=== PATIENT | male | born 1935 | race Caucasian/White ===

== ENCOUNTER → 2017-07-19 | Outpatient (CLI) | payer MEDICARE, OTHER ==
[~2017-07-19] MED LIST: ALEVE220 MG PO; AMLODIPINE BESYL5 MG PO; BENADRYL50 MG PO; COZAAR50 MG PO; ENALAPRIL MALEA20 MG PO; FINASTERIDE5 MG PO; HYDROCHLOROTH12.5 M3 PO; LIPITOR40 MG PO; LUPRON DEPOT45 MG IM; PRILOSEC20 MG PO; ST. JOSEPH ASPI81 MG PO; TAMSULOSIN HCL0.4 MG PO; TOPROL XL100 MG PO; TYLENOL EXTRA500 MG PO; VITAMIN D31000 UNI2 PO; ZYLOPRIM100 MG PO
== END | disposition home or self-care (01) ==
LOC: CDC 08:34
DX: Z01.810 Encounter for preprocedural cardiovascular examination (principal); I44.4 Left anterior fascicular block
CPT/HCPCS: 93000

== ENCOUNTER 2017-09-07 08:55 | Day surgery (SDC) | payer OTHER ==
[~2017-09-07] VITALS: Ht 177.8 cm; Wt 88.4 kg
[2017-09-07 09:54] VITALS: BP 196/93
[2017-09-07 10:50] LABS: ANION GAP 12 MEQ/L (2-14); CHLORIDE 99 MEQ/L (99-109); GFR ESTIMATE (CALCULATED) 31 mL/min/ (58.99-99999); GLUCOSE 101 mg/dL (70-99); POTASSIUM 3.4 MEQ/L (3.7-5.4); SAMPLE HEMOLYSIS CHECK 0; SAMPLE ICTERIC CHECK 0; SAMPLE LIPEMIA CHECK 0; SODIUM 135 MEQ/L (136-147); UREA NITROGEN (BUN) 23 mg/dL (9-23)
[2017-09-07 13:25] VITALS: BP 176/85
[2017-09-07 14:06] VITALS: BP 183/84
== END 2017-09-07 14:25 | disposition home or self-care (01) ==
LOC: SDC
PROVIDERS: Urology
DX: N13.1 Hydronephrosis with ureteral stricture, not elsewhere classified (principal); C61 Malignant neoplasm of prostate; I12.9 Hypertensive chronic kidney disease with stage 1 through stage 4 chronic kidney disease, or unspecified chronic kidney disease; N18.9 Chronic kidney disease, unspecified
CPT/HCPCS: 74420; 80048; C1726; C1769; C2625; J0330; J0690; J1580; J2405; J3010; J7050

== ENCOUNTER 2017-10-28 14:03 | Emergency (ER) | payer OTHER ==
[~2017-10-28] VITALS: Ht 177.8 cm; Wt 85.5 kg
[2017-10-28 15:26] LABS: HEMATOCRIT 36.5 % (38.0-50.0); HEMOGLOBIN 12.4 G/DL (12.5-16.6); MCH 34.7 PG (29.0-34.0); MCV 102.2 FL (86-99); PLATELET COUNT 147 K/uL (156-360); RBC DIS.WIDTH-CV 12.5 % (11.8-14.6); RBC DIS.WIDTH-SD 47.8 % (39-53); RED BLOOD COUNT 3.57 M/uL (4.00-5.50); WHITE BLOOD COUNT 3.2 K/uL (4.1-10.2)
[2017-10-28 15:33] LABS: CHLORIDE 107 mEq/L (99-109); POTASSIUM 3.9 mEq/L (3.7-5.4); SODIUM 139 mEq/L (136-147)
[2017-10-28 15:34] LABS: GLUCOSE 102 mg/dL (70-99)
[2017-10-28 15:38] LABS: CREATININE 2.1 mg/dL (0.6-1.3); GFR ESTIMATE (CALCULATED) 32 mL/min/ (58.99-99999)
[2017-10-28 15:39] LABS: UREA NITROGEN (BUN) 17 mg/dL (9-23)
[2017-10-28] MEDS ORDERED: VENTOLIN HFA18 GM IH (15:44)
[2017-10-28] MEDS ORDERED: ROBITUSSIN AC,T10 ML PO (15:57)
[2017-10-28 16:18] VITALS: BP 174/88
== END 2017-10-28 16:18 | disposition home or self-care (01) ==
LOC: EME 14:03
PROVIDERS: Nurse Practitioner Family
DX: J06.9 Acute upper respiratory infection, unspecified (principal); N28.9 Disorder of kidney and ureter, unspecified; J45.909 Unspecified asthma, uncomplicated; Z85.46 Personal history of malignant neoplasm of prostate; Z90.49 Acquired absence of other specified parts of digestive tract; Z88.8 Allergy status to other drugs, medicaments and biological substances
CPT/HCPCS: 71046; 80048; 85027; 94640; 99281; 99284

== ENCOUNTER 2018-01-21 08:24 | Emergency (ER) | payer OTHER ==
[~2018-01-21] VITALS: Ht 177.8 cm; Wt 81.8 kg
[~2018-01-21 08:24] MED LIST changes: +ROBITUSSIN AC,T10 ML PO; +VENTOLIN HFA18 GM IH
[2018-01-21 09:50] LABS: HEMATOCRIT 34.8 % (38.0-50.0); HEMOGLOBIN 12.4 G/DL (12.5-16.6); MCH 36.2 PG (29.0-34.0); MCHC 35.6 G/DL (30.0-36.0); MCV 101.5 FL (86-99); PLATELET COUNT 171 K/uL (156-360); RBC DIS.WIDTH-CV 12.5 % (11.8-14.6); RBC DIS.WIDTH-SD 46.9 % (39-53); RED BLOOD COUNT 3.43 M/uL (4.00-5.50); WHITE BLOOD COUNT 6.5 K/uL (4.1-10.2)
[2018-01-21 10:03] LABS: CHLORIDE 104 mEq/L (99-109); POTASSIUM 3.6 mEq/L (3.7-5.4); SODIUM 138 mEq/L (136-147)
[2018-01-21 10:05] LABS: GLUCOSE 99 mg/dL (70-99)
[2018-01-21 10:09] LABS: CREATININE 1.8 mg/dL (0.6-1.3); GFR ESTIMATE (CALCULATED) 39 mL/min/ (58.99-99999)
[2018-01-21 10:10] LABS: UREA NITROGEN (BUN) 17 mg/dL (9-23)
[2018-01-21] MEDS ORDERED: TESSALON PERLE100 MG PO (11:02)
[2018-01-21] MEDS ORDERED: LEVAQUIN750 MG PO (11:02)
[2018-01-21] MEDS ORDERED: VENTOLIN HFA18 GM IH (11:02)
[2018-01-21 12:10] VITALS: BP 156/80
== END 2018-01-21 12:20 | disposition home or self-care (01) ==
LOC: EME 08:24
PROVIDERS: Nurse Practitioner Family
DX: J18.9 Pneumonia, unspecified organism (principal); J45.909 Unspecified asthma, uncomplicated; I10 Essential (primary) hypertension; Z85.46 Personal history of malignant neoplasm of prostate; Z79.82 Long term (current) use of aspirin; Z88.8 Allergy status to other drugs, medicaments and biological substances
CPT/HCPCS: 71046; 80048; 83605; 85027; 87040; 94640; 99281; 99285

== ENCOUNTER 2018-01-27 14:08 | Emergency (ER) | payer OTHER ==
[~2018-01-27] VITALS: Ht 177.8 cm; Wt 82.1 kg
[~2018-01-27 14:08] MED LIST changes: +LEVAQUIN750 MG PO; +TESSALON PERLE100 MG PO
[2018-01-27 14:50] LABS: BASOPHIL (%) 0.5 % (0-1); EOSINOPHIL (%) 0.9 % (0-5); EOSINOPHIL COUNT 0.1 K/uL (0-0.3); HEMATOCRIT 32.4 % (38.0-50.0); HEMOGLOBIN 11.6 G/DL (12.5-16.6); IMMATURE GRANULOCYTE (%) 4.2 % (0.0-0.7); LYMPHOCYTE (%) 15.6 % (15-42); LYMPHOCYTE COUNT 0.9 K/uL (1.0-2.8); MCH 35.5 PG (29.0-34.0); MCHC 35.8 G/DL (30.0-36.0); MCV 99.1 FL (86-99); MONOCYTE (%) 13.8 % (3-12); MONOCYTE COUNT 0.8 K/uL (0-0.8); NEUTROPHIL COUNT 3.7 K/uL (1.8-6.4); PLATELET COUNT 218 K/uL (156-360); RBC DIS.WIDTH-CV 11.9 % (11.8-14.6); RBC DIS.WIDTH-SD 43.9 % (39-53); RED BLOOD COUNT 3.27 M/uL (4.00-5.50); WHITE BLOOD COUNT 5.7 K/uL (4.1-10.2)
[2018-01-27 14:57] LABS: INTER. NORMALIZED RATIO 1.1
[2018-01-27 14:59] LABS: PTT 24.7 SEC (25-37)
[2018-01-27 15:00] LABS: ALBUMIN 3.7 g/dL (3.2-4.8); CHLORIDE 100 mEq/L (99-109); POTASSIUM 4.3 mEq/L (3.7-5.4); SODIUM 133 mEq/L (136-147)
[2018-01-27 15:01] LABS: MAGNESIUM 2.1 mg/dL (1.3-2.7)
[2018-01-27 15:03] LABS: GLUCOSE 112 mg/dL (70-99); TOTAL PROTEIN 6.7 g/dL (6.4-8.3)
[2018-01-27 15:05] LABS: TOTAL BILIRUBIN 0.6 mg/dL (0.0-1.0)
[2018-01-27 15:06] LABS: ALKALINE PHOSPHATASE 73 IU/L (3-129)
[2018-01-27 15:07] LABS: GFR ESTIMATE (CALCULATED) 29 mL/min/ (58.99-99999)
[2018-01-27 15:08] LABS: AST (GOT) 20 IU/L (2-34)
[2018-01-27 15:09] LABS: CREATININE 2.3 mg/dL (0.6-1.3); UREA NITROGEN (BUN) 26 mg/dL (9-23)
[2018-01-27 15:10] LABS: ALT (GPT) 10 IU/L (3-49)
[2018-01-27 15:12] LABS: TROP-I INTERPRETATION NEGATIVE; TROPONIN-I 0.01 ng/mL (0.0-0.30)
[2018-01-27 16:13] LABS: APPEARANCE CLEAR ((CLEAR)); BILIRUBIN NEGATIVE; BLOOD NEGATIVE; COLOR YELLOW ((YELLOW)); GLUCOSE (STRIP) NEGATIVE; KETONES NEGATIVE; LEUKOCYTES NEGATIVE; NITRITE NEGATIVE; PROTEIN (STRIP) NEGATIVE; SPECIFIC GRAVITY 1.019 (1.000-1.030); UCUL ADDED? NO; UROBILINOGEN 0.2 MG/DL (0.2-1.0)
[2018-01-27 18:31] VITALS: BP 170/91
== END 2018-01-27 18:33 | disposition home or self-care (01) ==
LOC: EME 14:08
PROVIDERS: Emergency Medicine
DX: I95.1 Orthostatic hypotension (principal); E86.0 Dehydration; N18.9 Chronic kidney disease, unspecified; I12.9 Hypertensive chronic kidney disease with stage 1 through stage 4 chronic kidney disease, or unspecified chronic kidney disease; R42 Dizziness and giddiness; R07.89 Other chest pain; S50.311A Abrasion of right elbow, initial encounter; S50.312A Abrasion of left elbow, initial encounter; S40.021A Contusion of right upper arm, initial encounter; W19.XXXA Unspecified fall, initial encounter; Z85.46 Personal history of malignant neoplasm of prostate; Z79.82 Long term (current) use of aspirin; Z90.49 Acquired absence of other specified parts of digestive tract
CPT/HCPCS: 70450; 71045; 72125; 80053; 81003; 83605; 83735; 84484; 85025; 85610; 85730; 93005; 99281; 99284; J7040; J7120